=== PATIENT | male | born 1965 | race Caucasian/White ===

== ENCOUNTER 2024-05-13 20:20 | Inpatient (IN) | payer BC ==
[~2024-05-13] VITALS: Ht 160 cm; Wt 82.6 kg
[2024-05-13 00:15] VITALS: BP 153/96; TEMP 97.7; O2SAT 95
[2024-05-13 04:35] VITALS: BP 150/86; TEMP 97.8; O2SAT 96
[2024-05-13 04:37] VITALS: BP 121/68; TEMP 97.4; O2SAT 98
[2024-05-13] MEDS: NITROGLYCERIN 0.4 MG/TAB BOTTLE SL ONE (20:45)
[2024-05-13 21:05] LABS: BASOPHILS % (AUTO) 0.7 % (0.0-2.0); EOSINOPHILS # (AUTO) 0.2 K/uL (0.0-0.7); EOSINOPHILS % (AUTO) 3.5 % (0.0-7.0); HEMATOCRIT 38.3 % (36.7-47.1); HEMOGLOBIN 13.3 g/dL (12.5-16.3); LYMPHOCYTES # (AUTO) 1.9 K/uL (0.8-4.8); LYMPHOCYTES % (AUTO) 32.3 % (20.5-51.5); MEAN CORPUSCULAR HEMOGLOBIN 28.7 uug (23.8-33.4); MEAN CORPUSCULAR HGB CONC 35 g/dL (32.5-36.3); MONOCYTES # (AUTO) 0.6 K/uL (0.1-1.30); MONOCYTES % (AUTO) 10.5 % (0.0-11.0); NEUTROPHILS # (AUTO) 3.2 K/uL (1.8-8.9); PLATELET COUNT (AUTO) 159 K/uL (152-348); RED BLOOD CELL COUNT(AUTO) 4.61 MIL/uL (4.06-5.63); RED CELL DISTRIBUTION WIDTH 13.8 % (12.1-16.2)
[2024-05-13 21:07] LABS: DIFFERENTIAL COMMENT 1
[2024-05-13 21:12] LABS: CARBON DIOXIDE 26 mmol/L (21-32); CHLORIDE 105 mmol/L (98-107); GLUCOSE 85 mg/dL (74-106); POTASSIUM 3.4 mmol/L (3.5-5.1); SODIUM SERUM 140 mmol/L (136-145); UREA NITROGEN, BLOOD 19 mg/dL (7-18)
[2024-05-13 21:25] LABS: ALANINE AMINOTRANSFERASE 121 U/L (16-63); ALBUMIN 3.5 g/dL (3.4-5.0); ALKALINE PHOSPHATASE 70 U/L (50-136); ASPARTATE AMINOTRANSFERASE 77 U/L (15-37); BILIRUBIN,DIRECT 0.2 mg/dL (0.0-0.2); BILIRUBIN,TOTAL 0.5 mg/dL (0.2-1.0); CALCIUM 8.2 mg/dL (8.5-10.1); NT-PRO BNP 209 pg/mL (0-125); TOTAL PROTEIN, SERUM 7.6 g/dL (6.4-8.2)
[2024-05-13] MEDS ORDERED: HYDROCODONE/APAP 5-325MG TABLET PO PRN (21:30)
[2024-05-13] MEDS ORDERED: TEMAZEPAM 15 MG CAPSULE PO PRN (21:30)
[2024-05-13] MEDS ORDERED: ACETAMINOPHEN 325 MG TABLET PO PRN (21:30)
[2024-05-13] MEDS ORDERED: VALS1TAB8 PO (22:13)
[2024-05-13] MEDS ORDERED: METO50TA16 PO (22:13)
[2024-05-13] MEDS ORDERED: POTASSIUM CHLORIDE 20 MEQ TAB.PRT.SR ONE (23:06)
[2024-05-13] MEDS: POTASSIUM CHLORIDE 20 MEQ TAB.PRT.SR PO ONE (23:09)
[2024-05-13] MEDS ORDERED: VALSARTAN 80 MG TABLET ONE (23:12)
[2024-05-13] MEDS ORDERED: METOPROLOL TARTRATE 50 MG TABLET ONE (23:12)
[2024-05-13] MEDS: METOPROLOL TARTRATE 50 MG TABLET PO SCH (23:15)
[2024-05-13] MEDS: VALSARTAN 80 MG TABLET PO ONE (23:15)
[2024-05-14] MEDS: hydrALAZINE HCL 25 MG TABLET PO PRN (01:01)
[2024-05-14] MEDS: PANTOPRAZOLE SODIUM 40 MG TABLET.DR PO SCH (06:12)
[2024-05-14 07:01] LABS: BASOPHILS % (AUTO) 0.7 % (0.0-2.0); EOSINOPHILS # (AUTO) 0.2 K/uL (0.0-0.7); EOSINOPHILS % (AUTO) 4.1 % (0.0-7.0); HEMATOCRIT 38.8 % (36.7-47.1); HEMOGLOBIN 13.6 g/dL (12.5-16.3); LYMPHOCYTES # (AUTO) 1.7 K/uL (0.8-4.8); LYMPHOCYTES % (AUTO) 33.3 % (20.5-51.5); MEAN CORPUSCULAR HEMOGLOBIN 28.9 uug (23.8-33.4); MEAN CORPUSCULAR HGB CONC 35 g/dL (32.5-36.3); MEAN CORPUSCULAR VOLUME 82.3 fL (73.0-96.2); MONOCYTES # (AUTO) 0.5 K/uL (0.1-1.30); MONOCYTES % (AUTO) 10.4 % (0.0-11.0); NEUTROPHILS # (AUTO) 2.6 K/uL (1.8-8.9); NEUTROPHILS % (AUTO) 51.5 % (38.5-71.5); PLATELET COUNT (AUTO) 155 K/uL (152-348); RED BLOOD CELL COUNT(AUTO) 4.71 MIL/uL (4.06-5.63); RED CELL DISTRIBUTION WIDTH 13.5 % (12.1-16.2); WHITE BLOOD COUNT (AUTO) 5.1 K/uL (3.6-10.2)
[2024-05-14 07:16] LABS: DIFFERENTIAL COMMENT 1
[2024-05-14 07:23] LABS: ALBUMIN 3.3 g/dL (3.4-5.0); BILIRUBIN,TOTAL 0.6 mg/dL (0.2-1.0); CALCIUM 8.3 mg/dL (8.5-10.1); CREATININE 0.8 mg/dL (0.6-1.3); MAGNESIUM 1.9 mg/dL (1.8-2.4); PHOSPHOROUS 4.2 mg/dL (2.5-4.9); POTASSIUM 3.2 mmol/L (3.5-5.1); THYROID STIMULATING HORMONE 3.832 mIU/mL (0.358-3.740); TOTAL PROTEIN, SERUM 7.3 g/dL (6.4-8.2)
[2024-05-14 08:07] VITALS: BP 146/95; TEMP 97.3; O2SAT 97
[2024-05-14] MEDS: ASPIRIN EC 81 MG TABLET.DR PO SCH (08:32)
[2024-05-14] MEDS: HYDROCHLOROTHIAZIDE 25 MG TABLET PO SCH (08:32)
[2024-05-14] MEDS: VALSARTAN 160 MG TABLET PO SCH (08:32)
[2024-05-14] MEDS: POTASSIUM CHLORIDE 20 MEQ TAB.PRT.SR PO ONE (10:32)
[2024-05-14 10:40] VITALS: BP 145/98; TEMP 97.2; O2SAT 96
[2024-05-14 16:30] VITALS: BP 154/106; TEMP 97.3; O2SAT 96
[2024-05-14] MEDS ORDERED: PANT40TA49 PO (17:47)
[2024-05-14] MEDS ORDERED: ASPI-618 PO (17:47)
[2024-05-14] MEDS ORDERED: NIFE60TA2 PO (17:47)
[2024-05-14] MEDS ORDERED: ROSU20TA2 PO (17:47)
== END 2024-05-14 18:55 | disposition home or self-care (01) | DRG 303 ==
LOC: ER 20:20 → TELE3 21:30
PROVIDERS: ADMIT Internal Medicine; ATTEND Internal Medicine
DX: I25.119 Atherosclerotic heart disease of native coronary artery with unspecified angina pectoris (principal); F17.210 Nicotine dependence, cigarettes, uncomplicated; I10 Essential (primary) hypertension; E78.1 Pure hyperglyceridemia; R73.03 Prediabetes; E87.6 Hypokalemia; I49.3 Ventricular premature depolarization; E66.9 Obesity, unspecified; Z68.32 Body mass index [BMI] 32.0-32.9, adult; R74.8 Abnormal levels of other serum enzymes; Z79.899 Other long term (current) drug therapy; Z82.49 Family history of ischemic heart disease and other diseases of the circulatory system
CPT/HCPCS: 36415; 71045; 76705; 83690; 83735; 84100; 84443; 84484; 84550; 85025; 85730; 93307; G0378